=== PATIENT | male | born 1970 | race Two or more races ===

== ENCOUNTER 2025-04-11 08:57 | Emergency (ER) | payer MEDICAID, OTHER ==
[~2025-04-11] VITALS: Ht 182.9 cm; Wt 94.8 kg
--- NOTE | 2025-04-11 09:18 | ED.PDOC ---
HPI (NEURO) HPI Comments This is a 54 year old male presenting to the ED with chief complaint of facial droop. Patient reports that he has been experiencing left sided facial droop with associated intermittent left sided headache and ear pain for the past week. Patient denies any N/V, extremity numbness/weakness, chest pain, SOB, or dizziness. Chief Complaint: Left Sided Weakness Time Seen by MD: 09:16 Reviewed Notes: Nurses Notes, Medications, Allergies Information Source: Patient Mode of Arrival: Ambulatory Severity: Moderate Headache Severity: Moderate Timing: Weeks Duration: Since onset Prehospital treatment: None Headache Quality: Aching Headache Location: Parietal Weakness Location: Facial Onset: At rest Circumstances: Spontaneous Past Medical History PAST MEDICAL HISTORY: DM, High Lipids, HTN Past Medical History (Other): Chronic back pain Surgical History: Denies all surgeries Family History Family History: Reviewed,noncontributory to illness Social History Smoker: Non-Smoker Alcohol: Denies ETOH Use Drugs: Denies Drug Use Lives In: Home Constitutional: denies: chills, diaphoresis, fatigue, fever, malaise, sweats, weakness, others EENTM: reports: ear pain; denies: blurred vision, double vision, ear bleeding, ear discharge, ear drainage, ear ringing, eye pain, eye redness, hearing loss, mouth pain, mouth swelling, nasal discharge, nose bleeding, nose congestion, nose pain, photophobia, tearing, throat pain, throat swelling, voice changes, others Respiratory: denies: cough, hemoptysis, orthopnea, SOB at rest, shortness of breath, SOB with excertion, stridor, wheezing, others Cardiovascular: denies: chest pain, dizzy spells, diaphoresis, Dyspnea on exertion, edema, irregular heart beat, left arm pain, lightheadedness, palpitations, PND, syncope, others Gastrointestinal: denies: abdomen distended, abdominal pain, blood streaked bowels, constipated, diarrhea, dysphagia, difficulty swallowing, hematemesis, melena, nausea, poor appetite, poor fluid intake, rectal bleeding, rectal pain, vomiting, others Genitourinary: denies: burning, dysuria, flank pain, frequency, hematuria, incontinence, penile discharge, penile sore, pain, testicle pain, testicle swelling, urgency, others Neurological: reports: headache, others (Left facial droop); denies: dizziness, fainting, left sided numbness, left sided weakness, numbness, paresthesia, pre- existing deficit, right sided numbness, right sided weakness, seizure, speech problems, tingling, tremors, weakness Musculoskeletal: denies: back pain, gout, joint pain, joint swelling, muscle pain, muscle stiffness, neck pain, others Integumetry: denies: bruises, change in color, change in hair/nails, dryness, laceration, lesions, lumps, rash, wounds, others Allergic/Immunocompromised: denies: Difficulty Healing, Frequent Infections, Hives, Itching, others Hematologic/Lymphatic: denies: anemia, blood clots, easy bleeding, easy bruising, swollen glands, others Endocrine: denies: excessive hunger, excessive sweating, excessive thirst, excessive urination, flushing, intolerance to cold, intolerance to heat, unexplained weight gain, unexplained weight loss, others Psychiatric: denies: anxiety, bipolar disorder, depression, hopeless, panic disorder, schizophrenia, sleepless, suicidal, others All Other Systems: Reviewed and Negative Physical Exam General Appearance: No Apparent Distress, Normal HEENT: Normal ENT Inspection, Pharynx Normal, TMs Normal Neck: Full Range of Motion, Non-Tender, Normal, Normal Inspection Respiratory: Chest Non-Tender, Lungs Clear, No Accessory Muscle Use, No Respiratory Distress, Normal Breath Sounds Cardiovascular: No Edema, No JVD, No Murmur, No Gallop, Normal Peripheral Pulses, Regular Rate/Rhythm Breast Exam: Deferred Gastrointestinal: No Organomegaly, Non Tender, No Pulsatile Mass, Normal Bowel Sounds, Soft Genitalia: Deferred Pelvic: Deferred Rectal: Deferred Extremities: No calf tenderness, Normal capillary refill, Normal inspection, Normal range of motion, Non-tender, No pedal edema Musculoskeletal : Apperance: Normal Neurologic: Alert, purchase order checker II-XII nml as Tested, Facial Droop (Left sided and involves the forehead), No Motor Deficits, Normal Affect, Normal Mood, No Sensory Deficits Cerebellar Function: Normal Reflexes: Normal Skin: Dry, Normal Color, Warm Lymphatic: No Adenopathy Was a procedure done? Was a procedure done?: No Differential Diagnosis (SZ) Seizure: N/A CVA: Luciano's Palsy General Weakness: N/A Headache: N/A X-Ray, Labs, Meds, VS Vital Signs Date Time Temp Pulse Resp B/P (MAP) Pulse Ox O2 Delivery O2 Flow Rate FiO2 04/11/25 09:37 98.1 92 16 132/80 (97) 98 98.1 04/11/25 09:37 92 16 98 Room Air 04/11/25 09:07 84 04/11/25 09:00 98.0 89 15 135/90 98 98.0 Lab Test 04/11/25 09:09 Range/Units POC Glucose 156 H 70-106 mg/dl Current Medications Medications (Trade) Dose Ordered Sig/Margaux Route Start Time Stop Time Status Last Admin Prednisone 40 mg ONCE ONCE PO 04/11/25 09:30 04/11/25 09:31 DC 04/11/25 09:36 Acyclovir (Zovirax Tablet) 400 mg ONCE ONCE PO 04/11/25 09:30 04/11/25 09:31 DC 04/11/25 09:36 Time of 1ST Reevaluation: 10:14 Reevaluation 1ST: Unchanged Patient Education/Counseling: Diagnosis, Treatment Family Education/Counseling: No Family Present Departure 1 Departure Time of Disposition: 09:27 (Patient with left-sided facial weakness involving the left forehead. Patient's your exam is benign.) Impression: Primary Impression: Luciano's palsy Disposition: HOME / SELF CARE / HOMELESS Condition: Stable Referrals: NILO YUSUF MD Additional Instructions: You have Luciano's Palsy. This is inflamation of your facial nerve. This can be caused by a virus. You were prescribed antiviral medication and steroids. Please take as directed. You should use eye drops to prevent your eye from drying out. You can tape your eye shut when you sleep to keep it from drying out. It is important to follow up with your regular doctor within one week. If your symptoms worsen or you have any other concerns then please return to the ER. e-Prescriptions Prednisone (Prednisone) 20 Mg Tab 40 MG PO DAILY for 5 Days, #10 MG Prov: JOVANY ROSS MD 04/11/25 Valacyclovir Hcl (Valtrex) 1 Gm Tab 1 TAB PO TID for 7 Days, #21 TAB Prov: JOVANY ROSS MD 04/11/25 Discharged With: Self Critical Care Note Critical Care Time?: No Stability Stability form required: No Heart Score Heart Score: Heart Score Response (Comments) Value History N/A 0 EKG N/A 0 Age N/A 0 Risk Factors N/A 0 Troponin N/A 0 Total 0 I personally scribed for JOVANY ROSS MD ([email or web address]) on 04/11/25 at 09:18. Electronically submitted by Gt Orozco ([email or web address]). I personally scribed for JOVANY ROSS MD ([email or web address]) on 04/11/25 at 09:26. Electronically submitted by Gt Orozco ([email or web address]). JOVANY ROSS MD Apr 11, 2025 09:18
[2025-04-11] MEDS: ACYCLOVIR 400 MG TAB PO ONE (09:36)
[2025-04-11] MEDS: predniSONE 20 MG TAB PO ONE (09:36)
[2025-04-11 09:37] VITALS: BP 132/80; PULSE 92; RESP 16; TEMP 98.1; O2SAT 98
[2025-04-11] MEDS ORDERED: VALA1TAB PO (11:06)
[2025-04-11] MEDS ORDERED: PRED20TA2 PO (11:06)
--- NOTE | 2025-04-11 18:32 | ECG ---
[facility] Test Date: 2025-04-11 Test Time: 09:07:27 Pat Name: SUSAN ELLINGTON Department: Room: Gender: M Major General: : 1970 Requested By: JOVANY ROSS Order Number: [id number] Reading MD: Kirill Turner Measurements Intervals Baxter Rate: 84 P: -18 MA: 162 QRS: 11 QRSD: 93 T: 31 QT: 360 QTc: 426 Interpretive Statements Sinus rhythm Low voltage, precordial leads Baseline wander in lead(s) II,III,aVL,aVF Electronically Signed On 04-16-2025 10:08:17 PST by Kirill Turner Please click the below link to view image of tracing.
== END 2025-04-11 11:16 | disposition home or self-care (01) ==
LOC: ER 08:57
DX: G51.0 Bell's palsy (principal); R51.9 Headache, unspecified; E11.9 Type 2 diabetes mellitus without complications; I10 Essential (primary) hypertension
CPT/HCPCS: 82947; 93005; 99283; J7030; J7512; 82962